=== PATIENT | female | born 1955 | race Caucasian/White ===

== ENCOUNTER 2018-01-03 16:50 | Outpatient (REF) | payer BC, SELFPAY ==
[2018-01-03 21:36] LABS: Anion Gap 7.8 mmol/L (3-11); BUN 18 mg/dL (7-18); CO2 27.2 mmol/L (21.0-32.0); CREATININE 0.71 mg/dL (0.55-1.02); Calcium 8.9 mg/dL (8.5-10.1); Chloride 101 mmol/L (98-107); Glucose 337 mg/dL (70-100); Potassium 4.2 mmol/L (3.5-5.1); Sodium 136 mmol/L (136-145)
== END 2018-01-03 16:51 ==
LOC: NCHCN 16:50
PROVIDERS: Visit Provider Registered Nurse
DX: E87.1 Hypo-osmolality and hyponatremia (principal)
CPT/HCPCS: 80048

== ENCOUNTER 2018-03-14 17:49 | Outpatient (REF) | payer BC, SELFPAY | END 2018-03-14 18:09 | LOC: NCHCN 17:49 | PROVIDERS: Visit Provider Registered Nurse | DX: R82.90 Unspecified abnormal findings in urine (principal) | CPT/HCPCS: 87077; 87086; 87186 ==

== ENCOUNTER 2018-11-20 22:51 | Outpatient (REF) | payer BC, SELFPAY ==
[2018-11-20 22:31] LABS: COMMENT (LAB VIEW ONLY) 16.59 mg/dL; Microalb ug/mg Crea 44.6 ug/mg Cr
== END 2018-11-20 23:11 ==
LOC: NCHCN 22:51
PROVIDERS: Visit Provider Nurse Practitioner Family
DX: E11.65 Type 2 diabetes mellitus with hyperglycemia (principal); I10 Essential (primary) hypertension
CPT/HCPCS: 82043; 82570